=== PATIENT | male | born 1955 | race Caucasian/White ===

== ENCOUNTER → 2016-09-09 | Outpatient (CLI) | payer BC ==
[~2016-09-09] MED LIST: ASPI81CH2 PO; ESCI10TA17 PO; LORA-741 PO; NIAC500T11 PO; SIMV20TA2 PO; ZOLP5TAB PO
== END | disposition home or self-care (01) ==
LOC: C.LAB 06:56
PROVIDERS: ATTEND Urology
DX: R97.20 Elevated prostate specific antigen [PSA] (principal)

== ENCOUNTER → 2016-11-11 | Outpatient (CLI) | payer BC ==
[2016-11-11 12:35] LABS: ALT/SGPT 31 U/L (12-78); BLOOD UREA NITROGEN 14 mg/dl (7-18); BUN/CREATININE RATIO 15.1 (10-20); CALCIUM 9.4 mg/dl (8.5-10.1); CARBON DIOXIDE 28 mmol/L (21-32); CHLORIDE 102 mmol/L (98-107); CHOLESTEROL 162 mg/dl (0-200); CREATININE 0.91 mg/dl (0.60-1.40); GLUCOSE 113 mg/dl (70-99); SODIUM 138 mmol/L (136-145)
[2016-11-11 12:38] LABS: ALB/GLOB RATIO 1.1 (0.9-2); ALKALINE PHOSPHATASE 135 U/L (45-117); AST/SGOT 19 U/L (15-37); CHOLESTEROL/HDL RATIO 2.7; HDL CHOLESTEROL 59 mg/dl; LDL CHOLESTEROL CALCULATED 80 mg/dl; TRIGLYCERIDES 114 mg/dl (0-150); VERY LOW DENSITY LIPOPROT CALC 23 mg/dl
[2016-11-11 12:44] LABS: ESTIMATED AVERAGE GLUCOSE 128 mg/dl; HA1C FLAG Normal (Normal)
== END | disposition home or self-care (01) ==
LOC: C.LAB 11:25
PROVIDERS: ATTEND Family Medicine
DX: E78.00 Pure hypercholesterolemia, unspecified (principal)

== ENCOUNTER 2017-03-01 16:38 | Emergency (ER) | payer BC ==
[~2017-03-01] VITALS: Ht 180.3 cm; Wt 113.0 kg
[2017-03-01 16:51] VITALS: TEMP 36.7; Ht 180.3 cm; Wt 113.0 kg
[2017-03-01] MEDS ORDERED: SIMV20TA2 PO (17:34)
[2017-03-01] MEDS ORDERED: NIAC500T11 PO (17:34)
[2017-03-01] MEDS ORDERED: LORA-741 PO (17:34)
[2017-03-01] MEDS ORDERED: ZOLP5TAB PO (17:34)
[2017-03-01] MEDS ORDERED: ONDANSETRON INJ 2 MG/ML 2 ML VIAL IV STA (17:37)
[2017-03-01] MEDS ORDERED: SODIUM CHLORIDE 0.9% 1000ML 1,000 ML IV STA (17:37)
--- NOTE | 2017-03-01 18:03 | EMERGENCY ROOM VISIT NOTE ---
History Report prepared by Tristin: Jaja Gomez Under the Supervision of: Tess FunesO. First contact with patient: 17:32 Chief Complaint: ABDOMINAL PAIN Stated Complaint: [id number] History of Present Illness The patient is a 61 year old male who presents to the Emergency Room with complaints of constant lower abdominal pain beginning 2 days ago. The patient states that 2 days ago he had a loose stool and began to have stomach cramping that has persisted. He complains of constipation, achiness, chills, nausea, intermittent coughing, headache with coughing, diaphoresis, and pain with moving his eyes from side to side. The patient denies any diarrhea, rash, back pain, and bloody stool. He notes that he spends a lot of time outside and in the [place] and is concerned that he may have soha bitten by a tick. He reports no history of abdominal surgery or diverticulitis. He notes that he gets regular colonoscopies that are normal. Source of History: patient Onset: 2 days ago Position: abdomen Timing: constant Associated Symptoms: + chills, + headache, + diaphoresis, + cough, + nausea , No back pain, No diarrhea, No rash Note: He complains of constipation, achiness, and pain with moving his eyes from side to side. The patient denies bloody stool. Review of Systems See HPI for pertinent positives & negatives. A total of 10 systems reviewed and were otherwise negative. Past Medical & Surgical Medical Problems: (1) Asthma (2) Bronchitis Surgical Problems: (1) H/O vasectomy Family History o pertinent family history stated. Social History Smoking Status: Former Smoker Smokeless Tobacco Use: No Alcohol Use: occasionally Drug Use: none Marital Status: Housing Status: lives with significant other Occupation Status: employed Current/Historical Medications Scheduled Niacin (Niacin), 500 MG PO DAILY Simvastatin (Zocor), 20 MG PO QPM Scheduled PRN Lorazepam (Ativan), 0.5 MG PO Q6H PRN for Anxiety Zolpidem Tartrate (Ambien), 5 MG PO HS PRN for Sleep Allergies Coded Allergies: No Known Allergies (Unverified , 03/01/17) Physical Exam Vital Signs Date Time Temp Pulse Resp B/P (MAP) Pulse Ox O2 Delivery O2 Flow Rate FiO2 03/01/17 19:58 65 20 139/75 97 03/01/17 19:12 59 03/01/17 18:36 55 21 127/76 94 Room Air 03/01/17 16:51 36.7 72 18 111/72 96 Room Air Physical Exam GENERAL: Patient is awake, alert, and in no acute distress. Patient is resting comfortably and showing no signs of anxiety EYES: The conjunctivae are clear. The pupils are round and reactive. EARS, NOSE, MOUTH AND THROAT: The nose is without any evidence of any deformity. Mucous membranes are moist tongue is midline NECK: The neck is nontender and supple. RESPIRATORY: Normal respiratory effort is noted there is no evidence of wheezing rhonchi or rales CARDIOVASCULAR: Regular rate and rhythm noted there no murmurs rubs or gallops normal S1 normal S2 GASTROINTESTINAL: Bowel sounds are present in all quadrants. Abdomen moderately distended with lower abdominal tenderness to palpation, mild guarding was noted in suprapubic region BACK: No midline tenderness or or step-off noted range of motion in flexion extension as well as rotation no signs of muscle spasm noted MUSCULOSKELETAL/EXTREMITIES: There is no evidence of gross deformity full range of motion is noted in the hips and shoulders SKIN: There is no obvious evidence of any rash. There are no petechiae, pallor or cyanosis noted. NEUROLOGIC: Patient is awake alert and oriented x3 Medical Decision & Procedures ER Provider Diagnostic Interpretation: Radiology results as stated below per my review and radiologist interpretation: CHEST ONE VIEW PORTABLE FINDINGS: The cardiac and mediastinal contours are normal. There is no evidence of focal pulmonary consolidation. There is no evidence of failure. No pleural effusions are visualized.[ There is no free intraperitoneal air. IMPRESSION: No active disease in the chest. Electronically signed by: Darrell Asencio M.D. 03/01/2017 6:07 PM Dictated Date/Time: 03/01/2017 6:[address] SCAN OF THE ABDOMEN AND PELVIS WITHOUT IV CONTRAST FINDINGS: Lung bases: The heart is enlarged and without pericardial effusion. The coronary arteries are densely calcified. Emphysematous change is noted. There is no airspace consolidation or pleural effusion. Dependent atelectasis is observed. Liver: The unenhanced liver is normal in size and contour. The liver demonstrates diffusely diminished attenuation consistent with hepatic steatosis a 2 cm cyst is noted in the right lobe. There is no intrahepatic biliary ductal dilatation. Gallbladder: Unremarkable. Spleen: The spleen is enlarged measuring 15.1 cm in length. Pancreas: The unenhanced pancreas is moderately atrophic and grossly unremarkable. Adrenal glands: Unremarkable. Kidneys: The unenhanced kidneys are normal in size and without hydronephrosis. There are no renal calculi identified. A 2.5 cm exophytic cyst arises from the left upper pole. Abdominal vasculature: The abdominal aorta is normal in course and caliber noting moderate to advanced atherosclerotic calcification. Bowel: The small bowel and colon are normal in course and caliber. There are scattered colonic diverticula without CT evidence of acute diverticulitis. The appendix is well-visualized and normal. Peritoneum: There is no intraperitoneal free air or abdominal ascites. Trace indeterminant fluid is noted in the pelvis. Lymphadenopathy: None. Pelvic viscera: The bladder, prostate, and seminal vesicles are normal as visualized. Skeletal structures: The skeletal structures are osteopenic. Mild lumbosacral spondylosis is observed. No lytic or blastic lesions are seen. IMPRESSION: 1. Suboptimal examination without oral and IV contrast. 2. There is trace free fluid in the pelvis. This is of indeterminant significance and may be a reactive basis. 3. No additional infectious or inflammatory findings are seen in the abdomen or pelvis. 4. Hepatic steatosis and splenomegaly. 5. Cardiomegaly and emphysema. 6. Additional findings as above. Electronically signed by: Brian Cancino M.D. 03/01/2017 6:39 PM Dictated Date/Time: 03/01/2017 6:33 PM Laboratory Results 03/01/17 18:00 Red Blood Count 5.37, Mean Corpuscular Volume 84.5, Mean Corpuscular Hemoglobin 29.2, Mean Corpuscular Hemoglobin Concent 34.6, Mean Platelet Volume 9.7, Neutrophils (%) (Auto) 80.7, Lymphocytes (%) (Auto) 12.4, Monocytes (%) (Auto) 5.9, Eosinophils (%) (Auto) 0.0, Basophils (%) (Auto) 0.5, Neutrophils # (Auto) 3.31, Lymphocytes # (Auto) 0.51, Monocytes # (Auto) 0.24, Eosinophils # (Auto) 0.00, Basophils # (Auto) 0.02 03/01/17 18:00 Test 03/01/17 18:00 White Blood Count 4.10 K/uL (4.8-10.8) Red Blood Count 5.37 M/uL (4.7-6.1) Hemoglobin 15.7 g/dL (14.0-18.0) Hematocrit 45.4 % (42-52) Mean Corpuscular Volume 84.5 fL (80-100) Mean Corpuscular Hemoglobin 29.2 pg (25-34) Mean Corpuscular Hemoglobin Concent 34.6 g/dl (32-36) Platelet Count 130 K/uL (130-400) Mean Platelet Volume 9.7 fL (7.4-10.4) Neutrophils (%) (Auto) 80.7 % Lymphocytes (%) (Auto) 12.4 % Monocytes (%) (Auto) 5.9 % Eosinophils (%) (Auto) 0.0 % Basophils (%) (Auto) 0.5 % Neutrophils # (Auto) 3.31 K/uL (1.4-6.5) Lymphocytes # (Auto) 0.51 K/uL (1.2-3.4) Monocytes # (Auto) 0.24 K/uL (0.11-0.59) Eosinophils # (Auto) 0.00 K/uL (0-0.5) Basophils # (Auto) 0.02 K/uL (0-0.2) RDW Standard Deviation 41.1 fL (36.4-46.3) RDW Coefficient of Variation 13.3 % (11.5-14.5) Immature Granulocyte % (Auto) 0.5 % Immature Granulocyte # (Auto) 0.02 K/uL (0.00-0.02) Prothrombin Time 12.0 SECONDS (9.0-12.0) Prothromb Time International Ratio 1.1 (0.9-1.1) Activated Partial Thromboplast Time 28.8 SECONDS (21.0-31.0) Partial Thromboplastin Ratio 1.1 Anion Gap 7.0 mmol/L (3-11) Est Creatinine Clear Calc Drug Dose 111.4 ml/min Estimated GFR () 107.0 Estimated GFR (Non- 92.3 BUN/Creatinine Ratio 13.0 (10-20) Calcium Level 8.8 mg/dl (8.5-10.1) Total Bilirubin 1.7 mg/dl (0.2-1) Direct Bilirubin 0.3 mg/dl (0-0.2) Aspartate Amino Transf (AST/SGOT) 31 U/L (15-37) Alanine Aminotransferase (ALT/SGPT) 29 U/L (12-78) Alkaline Phosphatase 112 U/L (45-117) Troponin I < 0.015 ng/ml (0-0.045) Total Protein 6.7 gm/dl (6.4-8.2) Albumin 3.4 gm/dl (3.4-5.0) Lipase 90 U/L (73-393) Lyme Disease IgG Antibody NEG (NEG) Lyme Disease IgM Antibody NEG (NEG) Laboratory results per my review. Medications Administered Medications (Trade) Dose Ordered Sig/Carlos Route Start Time Stop Time Status Last Admin Dose Admin Sodium Chloride 1,000 ml @ 999 mls/hr Q1H1M STAT IV 03/01/17 17:37 03/01/17 18:37 DC 03/01/17 18:15 999 MLS/HR Ondansetron HCl (Zofran Inj) 4 mg NOW STAT IV 03/01/17 17:37 03/01/17 17:39 DC 03/01/17 18:15 4 MG ECG Indication: abdominal pain Rate (beats per minute): 57 Rhythm: normal sinus Findings: no ectopy, other (no ST segment abnormalities) Comparison ECG Date: no prior available ED Course 1731: The patient was evaluated in room C8. A complete history and physical examination were performed. 1736: Zofran Inj 4mg IV, NSS 1,000 ml @ 999 mls/hr IV. 1934: I reevaluated and updated the patient. He is ready to go home. 1939: Upon reevaluation, the patient is doing well. I discussed the results and treatment plan with the patient. He verbalized agreement of the treatment plan. The patient was discharged home. Medical Decision Differential diagnosis: Etiologies such as appendicitis, diverticulitis, PUD, biliary pathology, UTI, pancreatitis, obstruction, mesenteric ischemia, aortic pathology, infections, inflammatory bowel disease, renal colic, as well as others were entertained. Medication Reconciliation: I attest that I have personally reviewed the patient' s current medications list. Blood pressure screening: Patient was found to have normal blood pressure on screening and does not require follow-up. The patient is a 61-year-old male who presented to the emergency department for an evaluation of lower abdominal discomfort. The patient states that his symptoms began a few days ago with constitutional symptoms including chills. He complains of constipation as well. Given the patient's location of his pain initially I thought his condition was consistent with diverticulitis. The patient was treated with IV fluids and IV antiemetics in the emergency department. On subsequent reevaluation he was feeling much better. I discussed the patient's laboratory and radiographic studies with him. He was encouraged to call his primary care physician in the morning to schedule follow-up. He was also encouraged to continue all medications as prescribed and return to the emergency department immediately if symptoms change worsen or the need arises. Impression Primary Impression: Abdominal pain Scribe Attestation The scribe's documentation has been prepared under my direction and personally reviewed by me in its entirety. I confirm that the note above accurately reflects all work, treatment, procedures, and medical decision making performed by me. Departure Information Dispostion Home / Self-Care Referrals Sonia Ontiveros D.O. (PCP) Forms HOME CARE DOCUMENTATION FORM, IMPORTANT VISIT INFORMATION Patient Instructions ED Abdominal Pain Unkn Cause Male, ED Fever Control, [facility] Additional Instructions Continue using Motrin and Tylenol as directed for fever and body aches. Call your family in the morning to schedule a follow-up appointment. Rest and avoid any strenuous activity. Drink plenty clear liquids. Return to the emergency Department immediately if symptoms change worsen or the need arises. Problem Qualifiers Primary Impression: Abdominal pain Abdominal location: lower abdomen, unspecified Qualified Codes: R10.30 - Lower abdominal pain, unspecified
--- NOTE | 2017-03-01 18:09 | DIAGNOSTIC IMAGING REPORT ---
CHEST ONE VIEW PORTABLE CLINICAL HISTORY: Abdominal pain COMPARISON STUDY: No previous studies for comparison. FINDINGS: The cardiac and mediastinal contours are normal. There is no evidence of focal pulmonary consolidation. There is no evidence of failure. No pleural effusions are visualized.[ There is no free intraperitoneal air. IMPRESSION: No active disease in the chest. Electronically signed by: Darrell Asencio M.D. 03/01/2017 6:07 PM Dictated Date/Time: 03/01/2017 6:07 PM
[2017-03-01 18:15] LABS: BASO % 0.5 %; BASO ABS # 0.02 K/uL (0-0.2); COMPLETE YES; HEMATOCRIT 45.4 % (42-52); IG% 0.5 %; LYMPH % 12.4 %; LYMPH ABS # 0.51 K/uL (1.2-3.4); MEAN CELL VOLUME 84.5 fL (80-100); MEAN CORPUSCULAR HEMOGLOBIN 29.2 pg (25-34); MEAN CORPUSCULAR HGB CONC 34.6 g/dl (32-36); MEAN PLATELET VOLUME 9.7 fL (7.4-10.4); MONO % 5.9 %; NEUT % 80.7 %; PLATELET COUNT 130 K/uL (130-400); RED BLOOD COUNT 5.37 M/uL (4.7-6.1)
[2017-03-01 18:24] LABS: INR 1.1 (0.9-1.1); PARTIAL THROMBOPLASTIN RATIO 1.1
[2017-03-01 18:31] LABS: ALT/SGPT 29 U/L (12-78); AST/SGOT 31 U/L (15-37); BLOOD UREA NITROGEN 12 mg/dl (7-18); CALCIUM 8.8 mg/dl (8.5-10.1); CARBON DIOXIDE 28 mmol/L (21-32); CHLORIDE 97 mmol/L (98-107); CREATININE 0.89 mg/dl (0.60-1.40); GLUCOSE 91 mg/dl (70-99); POTASSIUM 3.5 mmol/L (3.5-5.1); SODIUM 132 mmol/L (136-145)
[2017-03-01 18:36] LABS: ALKALINE PHOSPHATASE 112 U/L (45-117)
--- NOTE | 2017-03-01 18:41 | DIAGNOSTIC IMAGING REPORT ---
CT SCAN OF THE ABDOMEN AND PELVIS WITHOUT IV CONTRAST CLINICAL HISTORY: Lower abdominal pain. COMPARISON STUDY: No priors. TECHNIQUE: CT scan of the abdomen and pelvis is performed from the lung bases to the proximal femora. Images are reviewed in the axial, sagittal, and coronal planes. IV contrast was not administered for this examination as per the referring clinician. Note that the examination was performed in suboptimal fashion without oral and IV contrast. Automated dose control exposure was utilized. CT DOSE: 1035.58 mGy.cm FINDINGS: Lung bases: The heart is enlarged and without pericardial effusion. The coronary arteries are densely calcified. Emphysematous change is noted. There is no airspace consolidation or pleural effusion. Dependent atelectasis is observed. Liver: The unenhanced liver is normal in size and contour. The liver demonstrates diffusely diminished attenuation consistent with hepatic steatosis a 2 cm cyst is noted in the right lobe. There is no intrahepatic biliary ductal dilatation. Gallbladder: Unremarkable. Spleen: The spleen is enlarged measuring 15.1 cm in length. Pancreas: The unenhanced pancreas is moderately atrophic and grossly unremarkable. Adrenal glands: Unremarkable. Kidneys: The unenhanced kidneys are normal in size and without hydronephrosis. There are no renal calculi identified. A 2.5 cm exophytic cyst arises from the left upper pole. Abdominal vasculature: The abdominal aorta is normal in course and caliber noting moderate to advanced atherosclerotic calcification. Bowel: The small bowel and colon are normal in course and caliber. There are scattered colonic diverticula without CT evidence of acute diverticulitis. The appendix is well-visualized and normal. Peritoneum: There is no intraperitoneal free air or abdominal ascites. Trace indeterminant fluid is noted in the pelvis. Lymphadenopathy: None. Pelvic viscera: The bladder, prostate, and seminal vesicles are normal as visualized. Skeletal structures: The skeletal structures are osteopenic. Mild lumbosacral spondylosis is observed. No lytic or blastic lesions are seen. IMPRESSION: 1. Suboptimal examination without oral and IV contrast. 2. There is trace free fluid in the pelvis. This is of indeterminant significance and may be a reactive basis. 3. No additional infectious or inflammatory findings are seen in the abdomen or pelvis. 4. Hepatic steatosis and splenomegaly. 5. Cardiomegaly and emphysema. 6. Additional findings as above. Electronically signed by: Brian Cancino M.D. 03/01/2017 6:39 PM Dictated Date/Time: 03/01/2017 6:33 PM
[2017-03-01 19:10] LABS: LYME DISEASE AB IGM NEG (NEG)
[2017-03-01 19:13] LABS: LYME DISEASE AB IGG NEG (NEG)
[2017-03-01 19:58] VITALS: BP 139/75; PULSE 65; O2SAT 97
[2017-03-02] MEDS ORDERED: ASPI81CH2 PO (21:17)
[2017-03-02] MEDS ORDERED: ESCI10TA17 PO (21:17)
== END 2017-03-01 19:59 | disposition home or self-care (01) ==
LOC: C.EDB 16:39 → C.EDC 19:59
DX: R10.30 Lower abdominal pain, unspecified (principal); J45.909 Unspecified asthma, uncomplicated; Z98.52 Vasectomy status; Z87.891 Personal history of nicotine dependence; Z79.899 Other long term (current) drug therapy

== ENCOUNTER 2017-03-02 20:56 | Emergency (ER) | payer BC ==
[~2017-03-02] VITALS: Ht 180.3 cm; Wt 111.0 kg
[~2017-03-02 20:56] MED LIST changes: -ASPI81CH2 PO; -ESCI10TA17 PO
[2017-03-02 21:02] VITALS: Ht 180.3 cm; Wt 111.0 kg
[2017-03-02] MEDS ORDERED: ASPI81CH2 PO (21:17)
[2017-03-02] MEDS ORDERED: ESCI10TA17 PO (21:17)
--- NOTE | 2017-03-02 22:55 | DIAGNOSTIC IMAGING REPORT ---
CHEST ONE VIEW PORTABLE CLINICAL HISTORY: Altered mental status. COMPARISON STUDY: Chest radiograph March 01, 2017. FINDINGS: The lung volumes are normal. There is no consolidation to suggest pneumonia. Pulmonary vascularity is normal. Cardiac size is at the upper limits of normal. No pneumothorax or pleural effusion is present. IMPRESSION: No acute cardiopulmonary findings. Electronically signed by: Wisam Arzola M.D. 03/02/2017 10:53 PM Dictated Date/Time: 03/02/2017 10:52 PM
[2017-03-02 23:01] LABS: BASO % 0.6 %; BASO ABS # 0.02 K/uL (0-0.2); COMPLETE YES; HEMATOCRIT 39.9 % (42-52); LYMPH % 24.1 %; LYMPH ABS # 0.75 K/uL (1.2-3.4); MEAN CELL VOLUME 81.3 fL (80-100); MEAN CORPUSCULAR HEMOGLOBIN 29.1 pg (25-34); MEAN CORPUSCULAR HGB CONC 35.8 g/dl (32-36); MEAN PLATELET VOLUME 9.8 fL (7.4-10.4); NEUT % 58.3 %; PLATELET COUNT 130 K/uL (130-400); RED BLOOD COUNT 4.91 M/uL (4.7-6.1); WHITE BLOOD COUNT 3.11 K/uL (4.8-10.8)
--- NOTE | 2017-03-02 23:06 | EMERGENCY ROOM VISIT NOTE ---
History Report prepared by Tristin: Larry Medley Under the Supervision of: Dr. John Medrano M.D. First contact with patient: 22:27 Chief Complaint: NEURO SYMPTOMS Stated Complaint: VERY CONFUSED, HEADACHE, HEAVINESS ON SIDE, EYE Nursing Triage Summary: Patient left work early due to "shivers", weakness & headache. Went home and took an Ambien & nap from approx [id number]. reports at 1830 she noticed he was unsteady, difficulty remembering things & answering questions. She also noted he was incontinent of liquid stool which is abnormal for patient. Difficulty using tv remote as well. Was here yesterday in ED for GI sx & dehydration. Reports that he has been drinking fluids & had a small snack. Reports lack of appetite. Took laxative 03/01/17 and has had results since then. C/O bilateral "eye sockets" hurting. Denies any other pain or discomfort. History of Present Illness The patient is a 61 year old male who presents to the Emergency Room with a constant altered mental status beginning prior to arrival. The patient's states that she came home from work, and the patient had chills, a bright red face, and was disoriented. She reports that he had taken Ambien and went to sleep. The notes that when the patient would walk, he walks with a slant and is disoriented. She states that she convinced him to try and watch TV, and he could not use the remote. The reports the patient went to the bathroom, failed to pull his pants down, and had an accident. The patient states that he was tired and needed to sleep. He reports that he took the Ambien because he wanted to take a nap, and then sleep at night without taking another dose. The patient notes he has taken Ambien before because he has tinnitus and can not fall back asleep when he wakes in the night. He states that he has a headache. The patient denies hitting his head, neck pain, neck stiffness, a sorethroat, chest pain, and dysuria. He notes that he was in the ED yesterday because he was constipated and dehydrated, and he was told he had a virus. Source of History: patient Onset: prior to arrival Position: other (global) Quality: other (altered mental status) Timing: constant Associated Symptoms: + chills, + headache, No sorethroat, No neck pain, No chest pain Note: Associated symptoms: a bright red face and disoriented Denies hitting his head, neck stiffness and dysuria. Review of Systems See HPI for pertinent positives & negatives. A total of 10 systems reviewed and were otherwise negative. Past Medical & Surgical Medical Problems: (1) Asthma (2) Bronchitis Surgical Problems: (1) H/O vasectomy Family History Patient reports no known family medical history. Social History Smoking Status: Never Smoker Alcohol Use: occasionally Drug Use: none Marital Status: Housing Status: lives with significant other Occupation Status: employed Current/Historical Medications Scheduled Aspirin (Aspirin), 81 MG PO DIRECTED Escitalopram (Lexapro), Unknown Dose PO QPM Niacin (Niacin), 500 MG PO DAILY Simvastatin (Zocor), 20 MG PO HS Scheduled PRN Zolpidem Tartrate (Ambien), 5 MG PO HS PRN for Sleep Allergies Coded Allergies: No Known Allergies (Unverified , 03/02/17) Physical Exam Vital Signs Date Time Temp Pulse Resp B/P (MAP) Pulse Ox O2 Delivery O2 Flow Rate FiO2 03/03/17 02:01 71 20 115/78 94 Room Air 03/03/17 01:48 74 24 123/77 94 Room Air 03/03/17 00:48 72 25 94 Room Air 03/02/17 23:47 37.0 76 18 127/87 94 Room Air 03/02/17 22:56 74 25 94 Room Air 03/02/17 22:26 80 28 95 Room Air 03/02/17 21:56 76 17 114/77 93 Room Air 03/02/17 21:47 77 03/02/17 21:02 37.6 92 18 109/76 93 Room Air Physical Exam GENERAL: Patient is well appearing and in no acute distress, however mildly confused and forgetful. HEENT: No acute trauma, normocephalic atraumatic, mucous membranes moist, no nasal congestion, no scleral icterus. NECK: No stridor, no adenopathy, no meningismus, trachea is midline. LUNGS: No dyspnea. Clear to auscultation and equal bilaterally. No wheeze, no rhonchi. HEART: Regular rate and rhythm. No murmurs, rubs, gallops appreciated. ABDOMEN: Soft, nontender, bowel sounds positive, no masses appreciated, no peritonitis. BACK: No midline tenderness, no CVA tenderness EXTREMITIES: Normal motion all extremities, no cyanosis, no edema. NEUROLOGIC: Alert and oriented, no acute motor or sensory deficits, no focal weakness, cranial nerves grossly intact. SKIN: No rash, no jaundice, no diaphoresis. Medical Decision & Procedures ER Provider Diagnostic Interpretation: Radiology results and stated below per my review and radiologist interpretation: CHEST ONE VIEW PORTABLE CLINICAL HISTORY: Altered mental status. COMPARISON STUDY: Chest radiograph March 01, 2017. FINDINGS: The lung volumes are normal. There is no consolidation to suggest pneumonia. Pulmonary vascularity is normal. Cardiac size is at the upper limits of normal. No pneumothorax or pleural effusion is present. IMPRESSION: No acute cardiopulmonary findings. Electronically signed by: Wisam Arzola M.D. 03/02/2017 10:53 PM Dictated Date/Time: 03/02/2017 10:[address] HEAD: No ICH, mass effect, or edema. No evidence of acute cortical stroke. Visualized sinuses and mastoid air cells are clear. Radiologist: Kodi Curiel MD Study ready at 9502 and initial results transmitted at 6133. Laboratory Results 03/02/17 22:05 Red Blood Count 4.91, Mean Corpuscular Volume 81.3, Mean Corpuscular Hemoglobin 29.1, Mean Corpuscular Hemoglobin Concent 35.8, Mean Platelet Volume 9.8, Neutrophils (%) (Auto) 58.3, Lymphocytes (%) (Auto) 24.1, Monocytes (%) (Auto) 17.0, Eosinophils (%) (Auto) 0.0, Basophils (%) (Auto) 0.6, Neutrophils # (Auto ) 1.81, Lymphocytes # (Auto) 0.75, Monocytes # (Auto) 0.53, Eosinophils # (Auto ) 0.00, Basophils # (Auto) 0.02 03/02/17 22:05 Test 03/02/17 22:05 03/02/17 23:42 03/02/17 23:45 White Blood Count 3.11 K/uL (4.8-10.8) Red Blood Count 4.91 M/uL (4.7-6.1) Hemoglobin 14.3 g/dL (14.0-18.0) Hematocrit 39.9 % (42-52) Mean Corpuscular Volume 81.3 fL (80-100) Mean Corpuscular Hemoglobin 29.1 pg (25-34) Mean Corpuscular Hemoglobin Concent 35.8 g/dl (32-36) Platelet Count 130 K/uL (130-400) Mean Platelet Volume 9.8 fL (7.4-10.4) Neutrophils (%) (Auto) 58.3 % Lymphocytes (%) (Auto) 24.1 % Monocytes (%) (Auto) 17.0 % Eosinophils (%) (Auto) 0.0 % Basophils (%) (Auto) 0.6 % Neutrophils # (Auto) 1.81 K/uL (1.4-6.5) Lymphocytes # (Auto) 0.75 K/uL (1.2-3.4) Monocytes # (Auto) 0.53 K/uL (0.11-0.59) Eosinophils # (Auto) 0.00 K/uL (0-0.5) Basophils # (Auto) 0.02 K/uL (0-0.2) RDW Standard Deviation 38.7 fL (36.4-46.3) RDW Coefficient of Variation 12.8 % (11.5-14.5) Immature Granulocyte % (Auto) 0.0 % Immature Granulocyte # (Auto) 0.00 K/uL (0.00-0.02) Erythrocyte Sedimentation Rate 4 mm/hr (0-14) Prothrombin Time 11.3 SECONDS (9.0-12.0) Prothromb Time International Ratio 1.1 (0.9-1.1) Activated Partial Thromboplast Time 30.5 SECONDS (21.0-31.0) Partial Thromboplastin Ratio 1.2 Anion Gap 9.0 mmol/L (3-11) Est Creatinine Clear Calc Drug Dose 121.3 ml/min Estimated GFR () 111.2 Estimated GFR (Non- 95.9 BUN/Creatinine Ratio 10.4 (10-20) Calcium Level 8.3 mg/dl (8.5-10.1) Total Bilirubin 1.6 mg/dl (0.2-1) Direct Bilirubin 0.4 mg/dl (0-0.2) Aspartate Amino Transf (AST/SGOT) 52 U/L (15-37) Alanine Aminotransferase (ALT/SGPT) 41 U/L (12-78) Alkaline Phosphatase 103 U/L (45-117) Troponin I < 0.015 ng/ml (0-0.045) C-Reactive Protein 8.72 mg/dl (0-0.29) Total Protein 6.1 gm/dl (6.4-8.2) Albumin 3.2 gm/dl (3.4-5.0) Bedside Lactic Acid Venous 0.83 mmol/L (0.90-1.70) Urine Color DK YELLOW Urine Appearance CLEAR (CLEAR) Urine pH 6.5 (4.5-7.5) Urine Specific [place] 1.016 (1.000-1.030) Urine Protein NEG (NEG) Urine Glucose (UA) NEG (NEG) Urine Ketones NEG (NEG) Urine Occult Blood TRACE (NEG) Urine Nitrite NEG (NEG) Urine Bilirubin NEG (NEG) Urine Urobilinogen POS (NEG) Urine Leukocyte Esterase NEG (NEG) Urine WBC (Auto) 1-5 /hpf (0-5) Urine RBC (Auto) 0-4 /hpf (0-4) Urine Hyaline Casts (Auto) 0 /lpf (0-5) Urine Epithelial Cells (Auto) 5-10 /lpf (0-5) Urine Bacteria (Auto) NEG (NEG) Laboratory results as reviewed by me. ECG Indication: altered mental status Rate (beats per minute): 79 Rhythm: normal sinus Findings: no acute ischemic change, no ectopy ED Course 2230: The patient was evaluated in room C07. A complete history and physical exam was performed. 0013: I reevaluated the patient. He is more alert and feeling better. 0016: I discussed the patients case with Dr. Wall, [facility] Hospitalist. The patient will be evaluated for further treatment. Medical Decision Differential: Appendicitis, Diverticulitis, PUD/Gastritis, Biliary Pathology, UTI, Pyelonephritis, Renal Colic, Bowel Obstruction, Aortic Pathology, Acute Coronary Syndrome, amongst other pathologies entertained. Medication Reconciliation: I attest that I have personally reviewed the patient 's current medication list. Pleasant 61 yr old male arrives with family clearly confused and forgetful. No meningeal findings and no fevers. Was seen yesterday for abdominal pain and diagnosed with viral syndrome. Today abdomen soft, non-tender and benign today. Labs with mild bili elevation which is chronic. CRP elevated which is non-specific. WBC normal and other labs unremarkable. CT head unremarkable. Initial plan to consider LP though on re-evaluation he if vastly improved, feeling well and without symptoms. Full ROM neck, A&O x 4 and in no way meningitic. I feel LP not at this time indicated. Given vast change I am concerned he may have has stroke or TIA. I reviewed this with family and will defer further work-up to hospitalist. Stable and feeling well at time of consult. I did note to family that with liver abnormalities it may be that he is unable to clear ambien as quickly, plus with exhaustion all of this lead to acute confusion/encephalopathy, though without further work-up would be difficult to say for sure. Consults Time Called: 13 Consulting Physician: Dr. Wall, [facility] Hospitalist Returned Call: 0016 I discussed the patients case with Dr. Wall, [facility] Hospitalist. The patient will be evaluated for further treatment. Impression Primary Impression: Acute encephalopathy Scribe Attestation The scribe's documentation has been prepared under my direction and personally reviewed by me in its entirety. I confirm that the note above accurately reflects all work, treatment, procedures, and medical decision making performed by me. Departure Information Dispostion Being Evaluated By Hospitalist Referrals Sonia Ontiveros D.O. (PCP) Patient Instructions My [facility]
[2017-03-02 23:09] LABS: INR 1.1 (0.9-1.1); PARTIAL THROMBOPLASTIN RATIO 1.2; PROTHROMBIN TIME (PATIENT) 11.3 SECONDS (9.0-12.0)
[2017-03-02 23:11] LABS: ALT/SGPT 41 U/L (12-78); AST/SGOT 52 U/L (15-37); BLOOD UREA NITROGEN 8 mg/dl (7-18); BUN/CREATININE RATIO 10.4 (10-20); C-REACTIVE PROTEIN 8.72 mg/dl (0-0.29); CALCIUM 8.3 mg/dl (8.5-10.1); CARBON DIOXIDE 26 mmol/L (21-32); CHLORIDE 96 mmol/L (98-107); CREATININE 0.81 mg/dl (0.60-1.40); GLUCOSE 101 mg/dl (70-99); POTASSIUM 3.3 mmol/L (3.5-5.1); SODIUM 131 mmol/L (136-145)
[2017-03-02 23:16] LABS: ALKALINE PHOSPHATASE 103 U/L (45-117)
[2017-03-02 23:47] VITALS: TEMP 37
[2017-03-03 00:01] LABS: URINE APPEARANCE CLEAR (CLEAR); URINE BILIRUBIN NEG (NEG); URINE COLOR DK YELLOW; URINE NITRITE NEG (NEG); URINE PH 6.5 (4.5-7.5); URINE SPECIFIC GRAVITY 1.016 (1.000-1.030); UROBILINOGEN POS (NEG); ZZUR CULT IF INDIC CLEAN CATCH NO
[2017-03-03 00:09] LABS: MANUAL MICROSCOPIC REQUIRED? NO; REVIEW REQ? NO
[2017-03-03] MEDS ORDERED: GADAVIST IV PRN (04:30)
--- NOTE | 2017-03-03 05:28 | EMERGENCY ROOM VISIT NOTE ---
ED Visit Note First contact with patient: 05:16 This patient was evaluated by Dr. Lechuga and the resident from the [facility] service. They ordered an MRI which was unremarkable. They felt the patient was safe for discharge home. There was a bit of confusion as to exactly how much Ambien the patient took yesterday morning. Mental status has returned to normal. He will follow-up with Dr. Kemp who is his PCP in [place]. I instructed the to return to the emergency department patient had any additional confusion or altered mental status.
[2017-03-03 05:33] VITALS: BP 136/87; PULSE 84; O2SAT 93
--- NOTE | 2017-03-03 05:35 | Medical Consult ---
Consultation Date of Consultation: Mar 03, 2017. Attending Physician: Reason for Consultation: Altered mental status History of Present Illness 61-year-old male resident to the ER with complaints of altered mental status. The patient is accompanied by his stated that after she came home from work and noticed that the patient was disoriented. Per patient, the patient has been suffering from constipation followed by loose stools secondary to laxative use and had returned home from work as he was feeling unwell. He took an unknown amount of Ambien to help him sleep in the afternoon. His had tried to wake him after returning from work but he had felt very groggy and appeared to be very confused. The patient stated that he usually took Ambien to help with sleep and had not felt groggy before. The patient's was confused as he appeared to be disoriented and could not figure how to use the TV remote and also had incontinent bowel movement. He however is alert and oriented currently and denies any chest pain, shortness of breath, headache, motor weakness, numbness or tingling, blurry vision or slurring of speech Past Medical/Surgical History Medical Problems: (1) Abdominal pain Status: Acute (2) Acute encephalopathy Status: Acute Family History Patient reports no known family medical history. Social History Smoking Status: Never Smoker Drug Use: none Marital Status: Housing Status: lives with significant other Occupation Status: employed Allergies Coded Allergies: No Known Allergies (Unverified , 03/02/17) Current Inpatient Medications Current Inpatient Medications Medications (Trade) Dose Ordered Sig/Carlos Route Start Time Stop Time Status Last Admin Dose Admin Gadobutrol (Gadavist) 11 mmol UD PRN IV 03/03/17 04:30 03/07/17 04:29 Review of Systems Constitutional: No fever, No chills Eyes: No worsening of vision ENT: No hearing loss Respiratory: No cough, No sputum Cardiovascular: No chest pain Abdomen: + diarrhea, No pain, No nausea, No vomiting Musculoskeletal: No joint pain Genitourinary - Male: No hematuria, No dysuria Neurologic: No memory loss Psychiatric: No depression symptoms Endocrine: No fatigue Hematologic / Lymphatic: No abnormal bleeding/bruising Allergic / Immunologic: No environmental allergies Physical Exam Date Time Temp Pulse Resp B/P (MAP) Pulse Ox O2 Delivery O2 Flow Rate FiO2 03/03/17 05:33 84 18 136/87 93 03/03/17 04:10 79 18 120/76 96 Room Air 03/03/17 02:01 71 20 115/78 94 Room Air 03/03/17 01:48 74 24 123/77 94 Room Air 03/03/17 00:48 72 25 94 Room Air 03/02/17 23:47 37.0 76 18 127/87 94 Room Air 03/02/17 22:56 74 25 94 Room Air 03/02/17 22:26 80 28 95 Room Air 03/02/17 21:56 76 17 114/77 93 Room Air 03/02/17 21:47 77 03/02/17 21:02 37.6 92 18 109/76 93 Room Air General Appearance: WD/WN, no apparent distress Head: normocephalic, atraumatic Eyes: normal inspection ENT: normal ENT inspection, hearing grossly normal Neck: supple Respiratory/Chest: chest non-tender, lungs clear, normal breath sounds Cardiovascular: regular rate, rhythm Abdomen/GI: soft, no organomegaly Extremities/Musculoskelatal: no calf tenderness, no pedal edema Neurologic/Psych: alert, normal mood/affect, oriented x 3 Skin: normal color Laboratory Results Last 24 Hours Test 03/02/17 22:05 03/02/17 23:42 03/02/17 23:45 White Blood Count 3.11 K/uL Red Blood Count 4.91 M/uL Hemoglobin 14.3 g/dL Hematocrit 39.9 % Mean Corpuscular Volume 81.3 fL Mean Corpuscular Hemoglobin 29.1 pg Mean Corpuscular Hemoglobin Concent 35.8 g/dl Platelet Count 130 K/uL Mean Platelet Volume 9.8 fL Neutrophils (%) (Auto) 58.3 % Lymphocytes (%) (Auto) 24.1 % Monocytes (%) (Auto) 17.0 % Eosinophils (%) (Auto) 0.0 % Basophils (%) (Auto) 0.6 % Neutrophils # (Auto) 1.81 K/uL Lymphocytes # (Auto) 0.75 K/uL Monocytes # (Auto) 0.53 K/uL Eosinophils # (Auto) 0.00 K/uL Basophils # (Auto) 0.02 K/uL RDW Standard Deviation 38.7 fL RDW Coefficient of Variation 12.8 % Immature Granulocyte % (Auto) 0.0 % Immature Granulocyte # (Auto) 0.00 K/uL Erythrocyte Sedimentation Rate 4 mm/hr Prothrombin Time 11.3 SECONDS Prothromb Time International Ratio 1.1 Activated Partial Thromboplast Time 30.5 SECONDS Partial Thromboplastin Ratio 1.2 Sodium Level 131 mmol/L Potassium Level 3.3 mmol/L Chloride Level 96 mmol/L Carbon Dioxide Level 26 mmol/L Anion Gap 9.0 mmol/L Blood Urea Nitrogen 8 mg/dl Creatinine 0.81 mg/dl Est Creatinine Clear Calc Drug Dose 121.3 ml/min Estimated GFR () 111.2 Estimated GFR (Non- 95.9 BUN/Creatinine Ratio 10.4 Random Glucose 101 mg/dl Calcium Level 8.3 mg/dl Total Bilirubin 1.6 mg/dl Direct Bilirubin 0.4 mg/dl Aspartate Amino Transf (AST/SGOT) 52 U/L Alanine Aminotransferase (ALT/SGPT) 41 U/L Alkaline Phosphatase 103 U/L Troponin I < 0.015 ng/ml C-Reactive Protein 8.72 mg/dl Total Protein 6.1 gm/dl Albumin 3.2 gm/dl Bedside Lactic Acid Venous 0.83 mmol/L Urine Color DK YELLOW Urine Appearance CLEAR Urine pH 6.5 Urine Specific [place] 1.016 Urine Protein NEG Urine Glucose (UA) NEG Urine Ketones NEG Urine Occult Blood TRACE Urine Nitrite NEG Urine Bilirubin NEG Urine Urobilinogen POS Urine Leukocyte Esterase NEG Urine WBC (Auto) 1-5 /hpf Urine RBC (Auto) 0-4 /hpf Urine Hyaline Casts (Auto) 0 /lpf Urine Epithelial Cells (Auto) 5-10 /lpf Urine Bacteria (Auto) NEG Assessment & Plan 61-year-old male resident to the ER with complaints of altered mental status. The patient is accompanied by his stated that after she came home from work and noticed that the patient was disoriented. Altered mental status: Likely secondary to Ambien versus TIA - Head CT: There is no hemorrhage, mass effect, or evidence of acute territorial ischemia by CT criteria. - MRI brain :1. No acute intracranial abnormality. No evidence of acute ischemia or abnormal enhancement. 2. Findings suggest mild chronic microvascular ischemic changes. 3. Mild ethmoid and left maxillary sinus disease. The disorientation that the patient has experienced was likely secondary to using Ambien rather than TIA. CT and MRI head were unremarkable for an acute event . He was alert and oriented on arrival and He was monitored in the ER with no changes in mental status. He was recommended to follow-up with his PCP and advised to return to the ER if his symptoms returned Attending Addendum: I physically seen and examined this patient, have supervised the medical residents activities, and agree with the H&P as noted above with the following exceptions: NONE The patient is a 61-year-old male who presents emergency department with altered mental status that began prior to arrival. The , who is with the patient, help supply history. She reports that the patient came home from work , reportedly had chills, was disoriented, took an unknown amount of Ambien around 1:00 in the afternoon and went to sleep. reports that he would have difficulty walking and keeping his balance, had difficulty using TV remote , reportedly had an accident when he went to the restroom. Patient reports to that he frequently takes Ambien to deal with his chronic tinnitus, but usually does not do so at 1:00 in the afternoon like it did today. The patient had been to the emergency department the previous day due to constipation and dehydration and was told he had a virus. The patient is awake, well-developed and adequately nourished, alert and oriented 3, normocephalic and atraumatic, lying in bed and in no acute distress. HEENT--PERRL, EOMI, mucous membranes and oropharynx dry. Neck--supple, no JVD or bruits, thyroid normal, trachea midline, no adenopathy. Heart--normal S1 and S2, no extra beats, no murmurs, rubs or gallops. Lungs--clear bilaterally with good air movement, no respiratory distress, no accessory muscle use. Abdomen--normal bowel sounds and soft, nontender and nondistended, no hernias or masses, no organomegaly. Extremities--no cyanosis, clubbing or edema. There are good distal pulses b/l. Dermatologic--normal skin turgor, normal color, warm and dry, no abnormal lymph nodes, no rash. Neurologic--cranial nerves II through XII grossly intact, motor and sensory examination normal. Rheumatologic--normal range of motion, nontender, muscles and joints. Psychiatric--normal affect. Assessment and Plan: 1. Resolved episode of disorientation--patient underwent a CT of the head, and then underwent an MRI the brain. Both of which did not show any acute issues. The patient was able to ambulate without difficulty in the emergency department , was completely coherent for several hours, had a completely normal heart monitor for several hours, and was thought to be safe to discharge to home to follow-up with his physician the next day. He was advised to no longer take Ambien. Additional Copies To Sonia Ontiveros D.O. Resident Tracking Resident Involvement: Resident Care Provided Care Provided: [facility]
--- NOTE | 2017-03-03 07:02 | DIAGNOSTIC IMAGING REPORT ---
CT SCAN OF THE BRAIN WITHOUT IV CONTRAST CLINICAL HISTORY: Change in mental status. COMPARISON STUDY: No priors. TECHNIQUE: Unenhanced axial CT scan of the brain is performed from the vertex to the skull base. CT DOSE: 614.27 mGy.cm FINDINGS: Brain parenchyma: There is minimal subcortical and periventricular microangiopathic change. There is no hemorrhage, mass effect, or evidence of acute territorial ischemia by CT criteria. Murray-white matter is preserved. No extra-axial fluid collection is seen. Ventricles, sulci, cisterns: Prominent secondary to involutional change. Intracranial vasculature: There is atherosclerotic calcification of the cavernous carotid arteries. Calvarium: Unremarkable. Sinuses and mastoids: Trace mucosal thickening is seen in the left maxillary antrum. The remaining visualized paranasal sinuses are clear. The mastoid air cells are well pneumatized. Orbits: The bony orbits are grossly intact. IMPRESSION: There is no hemorrhage, mass effect, or evidence of acute territorial ischemia by CT criteria. Electronically signed by: Brian Cancino M.D. 03/03/2017 7:01 AM Dictated Date/Time: 03/03/2017 6:59 AM
--- NOTE | 2017-03-03 07:22 | DIAGNOSTIC IMAGING REPORT ---
BRAIN COMBO HISTORY:61 yearsMaleconfusion . Patient also complains of tinnitus since January 2016. COMPARISON: CT head 03/02/2017 TECHNIQUE: Multiplanar multisequence MRI of brain was obtained both with and without the use of 11 mL Gadavist. FINDINGS: There is no restricted diffusion to suggest acute ischemia. Midline structures including the corpus callosum, brainstem, optic chiasm, pituitary gland and pineal gland appear unremarkable the sagittal T1 series. There is no cerebellar tonsillar herniation. No pathologic blooming artifact identified. There is no acute intracranial hemorrhage, midline shift, abnormal extra-axial collections, hydrocephalus or intracranial mass. There is mild cerebral atrophy. Scattered areas of T2 prolongation within the periventricular and subcortical white matter of the cerebral images bilaterally, notably within the frontoparietal lobes are noted. There is no abnormal enhancement. The coronal postcontrast T1 series is mildly motion degraded. The flow voids at the level of the skull base appear patent. There is mild ethmoid sinus disease. Minimal left maxillary sinus disease also noted. The mastoid air cells and middle ear cavities appear generally clear. The orbits are symmetric. IMPRESSION: 1. No acute intracranial abnormality. No evidence of acute ischemia or abnormal enhancement. 2. Findings suggest mild chronic microvascular ischemic changes. 3. Mild ethmoid and left maxillary sinus disease. The above report was generated using voice recognition software. It may contain grammatical, syntax or spelling errors. Electronically signed by: Андрей Self M.D. 03/03/2017 7:21 AM Dictated Date/Time: 03/03/2017 7:15 AM
== END 2017-03-03 05:33 | disposition home or self-care (01) ==
LOC: C.EDB 20:58
DX: G04.30 Acute necrotizing hemorrhagic encephalopathy, unspecified (principal); J45.909 Unspecified asthma, uncomplicated; Z98.52 Vasectomy status; Z79.82 Long term (current) use of aspirin; Z79.899 Other long term (current) drug therapy

== ENCOUNTER → 2017-03-23 | Outpatient (CLI) | payer BC ==
[~2017-03-23] MED LIST changes: +ASPI81CH2 PO; +ESCI10TA17 PO; -LORA-741 PO
[2017-03-23 09:52] LABS: ESTIMATED AVERAGE GLUCOSE 111 mg/dl; HA1C FLAG Normal (Normal)
[2017-03-23 09:54] LABS: ALT/SGPT 31 U/L (12-78); BLOOD UREA NITROGEN 16 mg/dl (7-18); BUN/CREATININE RATIO 17.2 (10-20); CALCIUM 8.6 mg/dl (8.5-10.1); CARBON DIOXIDE 29 mmol/L (21-32); CHLORIDE 104 mmol/L (98-107); CHOLESTEROL 152 mg/dl (0-200); GLUCOSE 96 mg/dl (70-99); POTASSIUM 3.8 mmol/L (3.5-5.1); SODIUM 138 mmol/L (136-145); TRIGLYCERIDES 108 mg/dl (0-150); VERY LOW DENSITY LIPOPROT CALC 22 mg/dl
[2017-03-23 09:57] LABS: ALB/GLOB RATIO 1.2 (0.9-2); ALKALINE PHOSPHATASE 91 U/L (45-117); AST/SGOT 19 U/L (15-37); CHOLESTEROL/HDL RATIO 3.1; HDL CHOLESTEROL 49 mg/dl; LDL CHOLESTEROL CALCULATED 81 mg/dl
== END | disposition home or self-care (01) ==
LOC: C.LAB 06:52
PROVIDERS: ATTEND Family Medicine
DX: R73.9 Hyperglycemia, unspecified (principal)

== ENCOUNTER 2017-08-17 10:10 | Emergency (ER) | payer BC ==
[~2017-08-17] VITALS: Ht 177.8 cm; Wt 117.0 kg
[2017-08-17 10:31] VITALS: TEMP 36.5; Ht 177.8 cm; Wt 117.0 kg
--- NOTE | 2017-08-17 11:44 | DIAGNOSTIC IMAGING REPORT ---
L-SPINE MIN 4 VIEWS ROUTINE HISTORY: Pain right sided lumbar back pain COMPARISON: None. FINDINGS: There is no fracture. No subluxation. Moderate degenerative disc changes throughout. Moderate degenerative osteophytic change throughout the anterolateral aspect of the vertebral bodies. No compression deformity. No acute subluxation. IMPRESSION: Moderate degenerative disc change throughout the entire lumbar region. Moderate degenerative osteophytic changes throughout. No acute process. The above report was generated using voice recognition software. It may contain grammatical, syntax or spelling errors. Electronically signed by: Lito Emanuel M.D. 08/17/2017 11:43 AM Dictated Date/Time: 08/17/2017 11:42 AM
[2017-08-17] MEDS ORDERED: SIMV40TA2 PO (11:45)
[2017-08-17] MEDS ORDERED: NIAC1TAB56 PO (11:45)
[2017-08-17] MEDS ORDERED: ZOLP1TAB PO (11:45)
[2017-08-17] MEDS ORDERED: ESCI10TA17 PO (11:45)
[2017-08-17] MEDS ORDERED: CYCL10TA6 PO (12:26)
[2017-08-17] MEDS ORDERED: TRAM-10 PO (12:26)
[2017-08-17 12:43] VITALS: BP 138/88; PULSE 60; O2SAT 94
--- NOTE | 2017-08-17 19:36 | EMERGENCY ROOM VISIT NOTE ---
ED Visit Note First contact with patient: 10:57 Chief Complaint: Back pain. History of Present Illness: Mr. Rowe is a 61-year-old white male who ambulates into the ED complaining of right sided lumbar back pain. Historically patient reports he's had a previous "pinched nerve many years ago" that did not require surgical intervention. Patient reports yesterday he started experiencing mild lumbar back pain over the right paraspinous muscles associated with the L3 through L5 area. Over the last day the pain has gradually increased in intensity. He describes his pain as a sharp sensation. He reports there is minimal radiation of his pain towards the lumbar back and across into the left paraspinous musculature. He reports he is not having any pain at rest but when he does any movements of the lumbar spine he rates his discomfort 9/10. He reports he has been taking ibuprofen which makes his pain more bearable. In addition to flexing at the waist he does report rolling in bed increases his discomfort. Associated with his pain he reports that yesterday at up approximately the time the pain started he felt like he was stepping on something with the ball of his foot and thought his sock was rolled up. He reports when he checked at the sock was not rolled up but he continues to experience the sensation. He denies any fevers, chills, sweats, skin eruptions, skin color changes, abdominal pain, nausea, vomiting, diarrhea, constipation, rectal bleeding, black /tarry stools, urinary symptoms, hematuria, genital paresthesias, bowel and bladder dysfunction, lower extremity weakness/numbness/tingling, difficulty walking, difficulty ambulating. Review of Systems: As noted above in history of present illness. All body systems were reviewed and found to be negative as noted above. Past Medical History: As previously noted, unspecified skin disease, bronchitis , status post knee surgery Current Medications: Aspirin, Ambien, Zocor, niacin, Lexapro. Allergies to Medications: Patient denies. Social History: Patient is currently employed; he feels safe in his home environment; he denies tobacco use and admits to alcohol use. Physical Examination: Vital Signs: Date Time Temp Pulse Resp B/P (MAP) Pulse Ox O2 Delivery O2 Flow Rate FiO2 08/17/17 12:43 60 18 138/88 94 08/17/17 10:31 36.5 62 18 155/84 97 Room Air GENERAL: 61-year-old male in mild to moderate distress due to pain, nontoxic- appearing, afebrile and hemodynamically stable. NEUROLOGICAL: Awake, alert and oriented to person, place and time. Answering questions appropriately and following commands. Normal gait. Good hand eye coordination. SKIN: Warm, dry and pink. No soft tissue eruptions or trauma noted. HEENT: Atraumatic and normocephalic. BACK: No tenderness over the bony cervical, thoracic and lumbar spine. Mild tenderness in the right lumbar paraspinous musculature approximately 10-12 cm from the spine. There is minimal muscle spasm in this area. Decreased range of motion in all movements due to pain. Negative straight leg raise test. No CVA tenderness. THORAX: Lungs sounds are clear to auscultation and equal bilaterally with symmetrical chest wall. ABDOMEN: Obese, soft and nontender. Positive bowel sounds in all quadrants. No guarding, rigidity or organomegaly. LOWER EXTREMITIES: Moves all extremities well on command and with purpose. All distal neurovascular statuses are intact and equal bilaterally. No calf tenderness or cords. 4/5 muscle strength in all movements of the hips, knees and ankles. 2+ patellar and Achilles deep tendon reflexes intact and equal bilaterally. Able to distinguish light sensations through all dermatomes. ED Course: Patient is assessed as noted above. Patient's medication list was reviewed. Patient was offered pain medication and refused. Lumbar spine x-rays: Were reviewed by myself and read by the radiologist showing moderate degenerative disc changes throughout the entire lumbar spine. Moderate degenerative osteophytic changes throughout. No acute changes or compression deformities/subluxations. Patient was educated about today's findings and instructed on his treatment plan ; he verbalized understanding and agreement with this plan. Clinical Impression: Left-sided lumbar back pain. Decision-Making: Initially my differential diagnosis I considered muscle spasm, muscle strain, sciatica, herniated disc, discitis, vertebral fracture and other causes. Patient's blood pressure: Elevated. Blood pressure disposition: Situational. Disposition: Patient discharged home in stable condition; prior to departure he was reassessed and subjectively reported his pain was 3/10. Plan: Patient was prescribed Ultram 50 mg every 6 hours as needed for pain and encouraged to alternate the Ultram with 650 mg of acetaminophen every 3 hours. Patient was prescribed Flexeril 10 mg every 8 hours as needed for muscle spasm. I lengthy conversation with the patient on the use of ice, heat and proper lifting and moving techniques. Patient is encouraged to follow-up with family physician for follow-up care and treatment. Patient is encouraged return ED for worsening pain, fevers, abdominal pain, numbness and tingling in the rectal or genital areas, bowel or bladder incontinence, lower extremity weakness/numbness/tingling or any new/concerning symptoms.
== END 2017-08-17 12:47 | disposition home or self-care (01) ==
LOC: C.EDB 10:14 → C.EDC 12:47
DX: M54.5 Low back pain (principal); Z86.19 Personal history of other infectious and parasitic diseases; Z98.890 Other specified postprocedural states; Z79.82 Long term (current) use of aspirin; Z79.899 Other long term (current) drug therapy

== ENCOUNTER → 2017-10-01 | Outpatient (CLI) | payer BC ==
[~2017-10-01] MED LIST changes: +NIAC1TAB56 PO; -NIAC500T11 PO; -SIMV20TA2 PO; +SIMV40TA2 PO; +TRAM-10 PO; +ZOLP1TAB PO; -ZOLP5TAB PO
[2017-10-01 09:51] LABS: HEMOGLOBIN A1C 5.7 % (4.5-5.6)
[2017-10-01 09:56] LABS: ALBUMIN 3.7 gm/dl (3.4-5.0); ALT/SGPT 23 U/L (12-78); AST/SGOT 17 U/L (15-37); BLOOD UREA NITROGEN 14 mg/dl (7-18); CALCIUM 8.7 mg/dl (8.5-10.1); CARBON DIOXIDE 29 mmol/L (21-32); CREATININE 0.88 mg/dl (0.60-1.40); GLUCOSE 102 mg/dl (70-99); POTASSIUM 3.9 mmol/L (3.5-5.1); SODIUM 136 mmol/L (136-145)
[2017-10-01 09:59] LABS: ALKALINE PHOSPHATASE 107 U/L (45-117); CHOLESTEROL 164 mg/dl (0-200); LDL CHOLESTEROL CALCULATED 80 mg/dl; TOTAL PROTEIN 7.1 gm/dl (6.4-8.2)
== END | disposition home or self-care (01) ==
LOC: C.LAB 06:43
PROVIDERS: ATTEND Urology
DX: E78.00 Pure hypercholesterolemia, unspecified (principal); R73.9 Hyperglycemia, unspecified

== ENCOUNTER → 2018-04-18 | Outpatient (CLI) | payer BC ==
[~2018-04-18] MED LIST changes: -TRAM-10 PO
[2018-04-18 09:48] LABS: HEMOGLOBIN A1C 6.3 % (4.5-5.6)
[2018-04-18 10:08] LABS: ALBUMIN 3.4 gm/dl (3.4-5.0); ALKALINE PHOSPHATASE 108 U/L (45-117); ALT/SGPT 26 U/L (12-78); AST/SGOT 20 U/L (15-37); BLOOD UREA NITROGEN 14 mg/dl (7-18); CALCIUM 8.7 mg/dl (8.5-10.1); CARBON DIOXIDE 26 mmol/L (21-32); CHOLESTEROL 142 mg/dl (0-200); CREATININE 0.82 mg/dl (0.60-1.40); GLUCOSE 109 mg/dl (70-99); LDL CHOLESTEROL CALCULATED 70 mg/dl; POTASSIUM 3.7 mmol/L (3.5-5.1); SODIUM 138 mmol/L (136-145); TOTAL PROTEIN 6.7 gm/dl (6.4-8.2)
== END | disposition home or self-care (01) ==
LOC: C.LAB 06:56
PROVIDERS: ATTEND Family Medicine
DX: E78.00 Pure hypercholesterolemia, unspecified (principal); R73.9 Hyperglycemia, unspecified

== ENCOUNTER 2020-08-20 09:43 | Observation (INO) ==
--- NOTE | 2020-08-01 12:29 | PAT Medication Instructions ---
Medication Instructions Date of Service August 01, 2020 Home Medications sildenafil 100 mg tablet 50 mg PO .Take 1/2 tablet 1 ho aspirin 81 mg tablet,delayed release 81 mg PO PM clindamycin phosphate 1 % topical gel 1 applic TOPICAL DAILY PRN clobetasol 0.05 % topical cream 1 applic TOPICAL DAILY PRN crisaborole 2 % topical ointment 1 applic TOPICAL BID metronidazole 0.75 % topical cream 1 applic TOPICAL DAILY PRN niacin 500 mg tablet 1,000 mg PO PM omeprazole 20 mg capsule,delayed release 20 mg PO PM simvastatin 40 mg tablet 40 mg PO PM zolpidem 12.5 mg tablet,extended release,multiphase 12.5 mg PO HS PRN ASK your prescriber and surgeon aspirin 81 mg tablet,delayed release 81 mg PO PM STOP taking 48 hours before surgery niacin 500 mg tablet 1,000 mg PO PM STOP taking 24 hours before surgery clindamycin phosphate 1 % topical gel 1 applic TOPICAL DAILY PRN clobetasol 0.05 % topical cream 1 applic TOPICAL DAILY PRN crisaborole 2 % topical ointment 1 applic TOPICAL BID metronidazole 0.75 % topical cream 1 applic TOPICAL DAILY PRN DO NOT take the morning of surgery sildenafil 100 mg tablet 50 mg PO .Take 1/2 tablet (if needed) Take evening before surgery omeprazole 20 mg capsule,delayed release 20 mg PO PM simvastatin 40 mg tablet 40 mg PO PM zolpidem 12.5 mg tablet,extended release,multiphase 12.5 mg PO HS PRN (if needed) sildenafil 100 mg tablet 50 mg PO .Take 1/2 tablet (if needed) Other Notes If you have any questions please call us at [phone] or [phone] or [phone] or [phone]
--- NOTE | 2020-08-02 11:35 | Anesthesiology Consultation ---
Date of Service August 02, 2020 Assessment & Plan (1) Encounter for pre-operative examination: - Per assessment on 08/02: Travel screen- lives in [facility]. Travel to [facility] for doctor appt. Uses PPE. No known COVID-19 positive contacts or current COVID-19 related symptoms. No out of state or large gatherings planned for [place]. Surgeon arranging preop COVID testing (scheduled 08/13). Awaiting results. - ASA instructions per surgeon/prescriber Chart Review Chart Review: Acceptable Risk for Surgery and Patient seen in Pre Admission Testing Teaching & Discussion Pre-Anesthesia Teaching/Discussion Notes: Instructed NPO after midnight before surgery,except medications with 15 cc of water. Medication instructions provided according to the PAT guidelines. History Surgery Operation Date: 08/20/20 10:50 Proposed Procedures p Robotic Laparoscopic Assisted Retropubic Prostatectomy, Possible Open, Possible Pelvic Lymph Node dissection, Possible Suprapubic Tube Placement - Juan Ramon Teran MD Height/Weight Height: 5 ft 11 in Weight: 122.8 kg Allergies Allergy/AdvReac Type Severity Reaction Status Date / Time No Known Allergies Allergy Verified 08/01/20 10:03 Medications Home Medications Medication Instructions Recorded Confirmed Last Taken sildenafil 100 mg tablet 50 mg PO .Take 1/2 tablet 1 ho PRN 05/15/20 08/01/20 Unknown aspirin 81 mg tablet,delayed 81 mg PO PM 07/24/20 08/01/20 Unknown release clindamycin phosphate 1 % topical 1 applic TOPICAL DAILY PRN 07/24/20 08/01/20 Unknown gel clobetasol 0.05 % topical cream 1 applic TOPICAL DAILY PRN 07/24/20 08/01/20 Unknown crisaborole 2 % topical ointment 1 applic TOPICAL BID 07/24/20 08/01/20 Unknown metronidazole 0.75 % topical cream 1 applic TOPICAL DAILY PRN 07/24/20 08/01/20 Unknown niacin 500 mg tablet 1,000 mg PO PM tab 07/24/20 08/01/20 Unknown omeprazole 20 mg capsule,delayed 20 mg PO PM 07/24/20 08/01/20 Unknown release simvastatin 40 mg tablet 40 mg PO PM 07/24/20 08/01/20 Unknown zolpidem 12.5 mg tablet,extended 12.5 mg PO HS PRN tab 07/24/20 08/01/20 Unkn own release,multiphase Past Medical History Medical History Acid reflux controlled Benign prostatic hyperplasia with urinary obstruction Bilateral tinnitus Chronic eczema Hearing loss, sensorineural, high frequency Hypercholesterolemia Impotence, organic Obesity Prostate cancer Rosacea Exercise / Class Metabolic Activity II 4-5 Yardwork/Stairs/Walk up hill Past Family History Family History Father , 67yo CHF (congestive heart failure) Mother , 82yo Ruptured aortic aneurysm Alzheimer disease Dyslipidemia Hypertension Brother A-fib Sister Myocardial infarction Sister No problems noted. Sister No problems noted. Son No problems noted. 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 Physical Exam Vital Signs VITALS BP 148/98 (patient anxious regarding upcoming surgery/prostate cancer diagnosis, BP 145/82 at 07/24 urology office visit, patient will continue to have PCP monitor BP's) P 60 TEMP 97.8 SP02 97%RA RESP 16 PHYSICAL Full neck and c-spine range of motion. Full TMJ range of motion. TMD 3 finger breaths Mallampati Score 3 (small oral opening) Dentition: upper partial Lungs: clear throughout to auscultation Cardiac: regular rate and rhythm, no murmurs noted Spine: normal Carotid arteries: negative bruit Extremities: no edema Testing Laboratory Results 08/02/20 11:49 Urine Color Yellow 08/02/20 11:49 Urine Appearance Clear (Clear) 08/02/20 11:49 Urine pH 6.5 (4.5-7.5) 08/02/20 11:49 Ur Specific [place] 1.009 (1.000-1.030) 08/02/20 11:49 Urine Protein Negative (Negative) 08/02/20 11:49 Urine Glucose (UA) Negative (Negative) 08/02/20 11:49 Urine Ketones Negative (Negative) 08/02/20 11:49 Urine Nitrite Negative (Negative) 08/02/20 11:49 Ur Leukocyte Esterase Negative (Negative) 08/02/20 11:49 Blood Type O Positive 08/02/20 11:49 Antibody Screen NEGATIVE 08/02/20 11:49 07/26/20 SODIUM 137 POTASSIUM 4.0 CHLORIDE 103 CO2 27 BUN 13 CREATININE 0.96 GLUCOSE 111 05/08/20 HA1c 6.4% Electrocardiogram Date: 08/02/20 SB at 52bpm. unconfirmed report. Chest X-Ray Date: 08/02/20 FINDINGS: The cardiac and mediastinal contours are normal. There is no evidence of focal pulmonary consolidation. There is no evidence of failure. No pleural effusions are visualized.[There is a small zone of subsegmental atelectasis/scarring within the retrosternal region. IMPRESSION: No active disease in the chest.
[2020-08-02 12:09] LABS: Basophils # (auto) 0.03 K/uL (0-0.2); Basophils % (auto) 0.4 %; Eosinophils # (auto) 0.14 K/uL (0-0.5); Eosinophils % (auto) 1.9 %; Hematocrit (blood only) 42.9 % (42-52); Hemoglobin 13.9 g/dL (14.0-18.0); Immature Granulocytes # (auto) 0.01 K/uL (0.00-0.02); Immature Granulocytes % (auto) 0.1 %; Lymphocytes # (auto) 2.66 K/uL (1.2-3.4); Lymphocytes % (auto) 35.7 %; Mean Corpuscular Hemoglobin 25.9 pg (25-34); Mean Corpuscular Hgb Conc 32.4 g/dL (32-36); Mean Corpuscular Volume 79.9 fL (80-100); Monocytes # (auto) 0.61 K/uL (0.11-0.59); Monocytes % (auto) 8.2 %; Neutrophils % (auto) 53.7 %; Platelet Count 257 K/uL (130-400); RDW Coefficient of Variation 15.6 % (11.5-14.5); RDW Standard Deviation 45.6 fL (36.4-46.3); Red Blood Count 5.37 M/uL (4.7-6.1); White Blood Count 7.45 K/uL (4.8-10.8)
[2020-08-02 12:14] LABS: Appearance Urine Clear (Clear); Bilirubin Urine Negative (Negative); Blood Urine Negative (Negative); Color Urine Yellow; Glucose Urine UA Negative (Negative); Ketones Urine Negative (Negative); Leukocyte Esterase Urine Negative (Negative); Nitrite Urine Negative (Negative); Protein Urine Negative (Negative); Specific Gravity Urine 1.009 (1.000-1.030); Urobilinogen Urine Negative (Negative); pH Urine 6.5 (4.5-7.5)
--- NOTE | 2020-08-02 12:34 | XRay Report ---
XR chest Pre-admission PA/Lat CLINICAL HISTORY: Preoperative chest COMPARISON STUDY: 03/02/2017 FINDINGS: The cardiac and mediastinal contours are normal. There is no evidence of focal pulmonary co nsolidation. There is no evidence of failure. No pleural effusions are visualized.[There is a small z one of subsegmental atelectasis/scarring within the retrosternal region. IMPRESSION: No active disease in the chest. ACT 112: Negative or not required by law. Electronically signed by: Darrell Asencio M.D. 08/02/2020 12:32 PM
--- NOTE | 2020-08-02 15:08 | Electrocardiogram Report ---
Test Reason : Blood Pressure : / mmHG Vent. Rate : 052 BPM Atrial Rate : 052 BPM P-R Int : 180 ms QRS Dur : 098 ms QT Int : 454 ms P-R-T Axes : 053 069 053 degrees QTc Int : 422 ms Sinus bradycardia Otherwise normal ECG When compared with ECG of 02-MAR-2017 22:02, Vent. rate has decreased BY 27 BPM Confirmed by Omar Villanueva ([id number]) on 08/02/2020 3:08:01 PM Referred By: Juan Ramon Teran Confirmed By:Omar Villanueva
[~2020-08-20 09:43] MED LIST changes: -ASPI81CH2 PO; -ESCI10TA17 PO; +HEPARIN SOD 5,000 UNIT/0.5 ML VIAL SC SCH; +LACTATED RINGER'S 1,000 ML IV SCH; +LIDOCAINE HCL 2% 2 ML VIAL/AMP(20MG/ML) INFIL ONE; +LR 15ML/HR IV SCH; +MIDAZOLAM HCL 1 MG/ML 2ML VIAL ONE; -NIAC1TAB56 PO; +ONDANSETRON INJ 2 MG/ML 2 ML VIAL ONE; +PROPOFOL IV EMULSION 10 MG/ML 20 ML VIAL IV ONE; +ROCURONIUM BROMIDE 10 MG/ML 5 ML VIAL IV ONE; -SIMV40TA2 PO; -ZOLP1TAB PO; +fentaNYL citrate 100 MCG/2 ML VIAL ONE
--- NOTE | 2020-08-20 11:05 | History & Physical Bridge Note ---
Date of Service August 20, 2020 History & Physical Bridge Note I have examined the patient, reviewed the History & Physical and in the interval since the performance of the History & Physical I have noted the following changes of clinical significance: no changes noted
[2020-08-20] MEDS ORDERED: ATROPINE SULFATE 0.1 MG/ML 10ML SYR IV PRN (11:31)
[2020-08-20] MEDS ORDERED: HYDROmorphone INJ 0.5 MG/0.5 ML SYR IV PRN (11:31)
[2020-08-20] MEDS ORDERED: ONDANSETRON INJ 2 MG/ML 2 ML VIAL IV PRN (11:31)
[2020-08-20] MEDS ORDERED: KETOROLAC 30 MG/ML VIAL IV PRN (11:31)
[2020-08-20] MEDS ORDERED: LABETALOL HCL IV 5 MG/ML 20ML IV PRN (11:31)
[2020-08-20] MEDS ORDERED: BUPIVACAINE 0.5 % 5 MG/1 ML MPF 30ML VIAL ONE (11:32)
[2020-08-20] MEDS ORDERED: BELLADONNA/OPIUM SUPP 60 MG SUPP PR ONE (12:24)
[2020-08-20] MEDS ORDERED: ROCURONIUM BROMIDE 10 MG/ML 5 ML VIAL IV ONE ×7 (14:26→15:13)
[2020-08-20] MEDS ORDERED: SURGICEL ABSORB HEMOSTAT 2IN X 14IN TOP ONE (14:34)
[2020-08-20] MEDS ORDERED: GLYCOPYRROLATE 0.2 MG/ML VIAL ONE (15:13)
[2020-08-20] MEDS ORDERED: NEOSTIGMINE METHYLSULFATE 5 MG/5 ML SYR ONE (15:13)
[2020-08-20] MEDS ORDERED: FLOSEAL HEMOSTATIC MATRIX 10ML TOP ONE (15:14)
--- NOTE | 2020-08-20 15:46 | Operative Report ---
PG Post Operative Report Pre & Post Diagnosis Operation Date: 08/20/20 11:10 Pre-Op Diagnosis: Prostate Cancer Post-Op Diagnosis: Prostate Cancer I identified the patient and participated in the time-out.: Yes Procedure Operation Date: 08/20/20 11:10 Actual Procedures p Robotic Laparoscopic Assisted Retropubic Prostatectomy, Pelvic Lymph Node dissection(Not Applicable) - Juan Ramon Teran MD Surgeon Jeff Teran MD Credit Collections Analyst Melita Younger; Namrata Jaime Estimated Blood Loss 150 Findings Consistent with Post-Op Diagnosis Specimens 1. Periprostatic fat 2. Right pelvic lymph nodes 3. Left pelvic lymph nodes 4. Prostate and seminal vesicles Description of Procedure The patient was identified in the preoperative holding area, appropriate informed consents were reviewed and completed, and he was transported to the operating suite. Subcutaneous heparin was administered in the pre-operative holding area. Upon arrival in the operating suite, he received appropriate antibiotics and general anesthesia. He was positioned in dorsal lithotomy, a B&O suppository was inserted after digital rectal exam, and he was prepped and draped in standard fashion. A Garcia catheter was inserted in the sterile field. A Veress needle was passed per umbilicus with uniform insufflation of the abdomen to 15mmHg. He was placed in steep Trendelenburg position. A periumbilical incision was then made to accommodate a 12mm Visiport with 10mm 0degree laparoscope. Inspection of the abdomen was carried out, and there was no evidence of traumatic entry or injury secondary to the Veress needle. After confirming a clear anterior abdominal wall, ports were subsequently placed in standard robotic prostatectomy fashion without incident. To begin the robotic portion of the case, the left lateral aspect of the sigmoid was mobilized off of the left pelvic side wall to allow the pouch of [place] to be appropriately visualized. The medial umbilical ligaments were then controlled with bipolar electrocautery just inferior to the umbilicus. Following cauterization, they were divided utilizing monopolar cautery. A peritoneal incision was carried from this location to the medial aspect of the internal inguinal rings bilaterally with care to avoid opening through the ring. This incision was concluded when the vas deferens was reached. Dissection of the bladder and prostate off of the posterior aspect of the pubic arch was completed allowing full visualization of the prostate. The fat overlying the prostate was removed en bloc and passed off the table as a specimen labeled "periprostatic fat". The endopelvic fascia was cleared during this portion of the procedure, and subsequently opened - first on the right and then the left. The incision through the endopelvic fascia began near the prostate-bladder junction and was carried to the apex with extreme care to preserve all lateral levator musculature as well as the periurethral musculature and sphincter complex. I additionally preserved the puboprostatic ligaments. I then controlled the DVC with a 3-0 V-lock suture in overlapping/figure of 8 fashion. The lymph node dissection was then conducted. External iliac vessels were identified on the pelvic side wall. The packet of fat and lymphatic tissue that resides just under the iliac vein was elevated and off of the vein with a split and roll technique. The packet was dissected laterally to the circumflex vein and distally to the obturator nerve which was preserved. The p roximal aspect of the packet was carried towards the bifurcation of the iliac vessels. A combination of monopolar and bipolar cautery were used to assist with control. After completing the dissection on both sides, the packets were collected and passed off of the table as specimens labeled "pelvic lymph nodes". My attention then returned to the prostate, with identification of the bladder neck aided by gentle traction on the Garcia catheter and lateral to medial pressure at the presumed level of the bladder neck with the robotic instruments. An anterior cystotomy was made, the Garcia balloon deflated and the catheter guided through the incision to allow anterior retraction. I attempted to preserve maximal bladder neck musculature as I circumferentially dissected around the bladder neck. After incision through the posterior aspect of the mucosa, the dissection was carried through detrusor muscle until the bilateral ampullae of the vasa were identified. These were dissected entirely as were the bilateral seminal vesicles. The vasa were transected and the SV's and transected vasa were brought through the incision. This allowed me to elevate the posterior portion of the prostate and create a posterior plane by splitting the Denonvillier's fascia. An incision in the lateral prostatic fascia was then made bilaterally to facilitate control of the vascular pedicles and preservation of the nerve bundles. Vasculature running along the posterior/lateral aspect of the prostate was preserved as well as the tissue containing the nerves. The pedicles were then controlled with a series of Weck clips. The apical attachments of the prostate were remaining at that stage. The DVC was divided after control with bipolar cautery over the prostate. Continuous inspection from anterior and lateral views allowed me to closely follow the apical contour of the prostate and maximally preserve urethral length and tissue. The prostate was entirely freed at that point, and collected in an EndoCatch bag before being moved out of the field of vision. Hemostasis was confirmed and anastomosis of the bladder and urethra was completed utilizing a double armed V- Lock stitch. Of note, his urethra was somewhat friable and required meticulous attention to avoid carrying the urethra when reapproximating the bladder and urethra. Fortunately, I was able to successfully reapproximate with excellent preservation of urethral length. A new Garcia catheter was inserted and the anastomosis tested with irrigation. A BEA drain was guided through the left lateral robotic port and into the pelvis. This was sutured in place with a 3-0 nylon. The robot was undocked, the specimen extracted through expansion of the nichole- umbilical camera port. The fascia was closed with a series of 0-PDS figure of 8 stitches. The right optometry assistant port was closed in two layers - with a figure of 8 0-Vicryl to reapproximate the fascia followed by 4-0 Monocryl to close the skin. Monocryl was used to close all other skin incisions. All wounds were dressed with Dermabond. The case was concluded and the patient taken to the PACU in stable condition. Melita Younger and Namrata Jaime assisted from incision to closure. I attest to the content of the Intraoperative Record and any orders documented therein. Any exceptions are noted below.
[2020-08-20 16:04] LABS: Basophils # (auto) 0.02 K/uL (0-0.2); Basophils % (auto) 0.2 %; Eosinophils # (auto) 0.04 K/uL (0-0.5); Eosinophils % (auto) 0.3 %; Hematocrit (blood only) 41.1 % (42-52); Hemoglobin 13.6 g/dL (14.0-18.0); Immature Granulocytes # (auto) 0.01 K/uL (0.00-0.02); Immature Granulocytes % (auto) 0.1 %; Lymphocytes # (auto) 1.57 K/uL (1.2-3.4); Lymphocytes % (auto) 12.7 %; Mean Corpuscular Hemoglobin 26.6 pg (25-34); Mean Corpuscular Volume 80.3 fL (80-100); Mean Platelet Volume 9.5 fL (7.4-10.4); Monocytes # (auto) 0.58 K/uL (0.11-0.59); Monocytes % (auto) 4.7 %; Neutrophils # (auto) 10.18 K/uL (1.4-6.5); Platelet Count 270 K/uL (130-400); RDW Coefficient of Variation 15.3 % (11.5-14.5); RDW Standard Deviation 45.2 fL (36.4-46.3); Red Blood Count 5.12 M/uL (4.7-6.1)
[2020-08-20 16:17] LABS: Mean Corpuscular Hgb Conc 33.1 g/dL (32-36)
[2020-08-20 16:20] LABS: BUN Creatinine Ratio 9.7 (10-20); Calcium 8.3 mg/dl (8.5-10.1); Est GFR (African American) 71.5; Est GFR (Non-African American) 61.7
--- NOTE | 2020-08-20 16:33 | Anesthesiology Progress Note ---
Date of Service August 20, 2020 Anesthesia Post Procedure Vital Signs Vital Signs: Temp Pulse Pulse Resp BP BP Pulse Ox 08/20/20 16:20 36.6 C 66 17 111/71 93 08/20/20 16:10 69 15 100/56 L 94 08/20/20 16:00 72 19 110/62 97 08/20/20 15:50 36.4 C L 80 23 119/76 98 08/20/20 15:43 36.4 C L 86 16 125/84 96 08/20/20 10:17 36.7 C 79 20 147/92 H 98 Pain Intensity Abdomen: Pain Intensity: 2 Transfer of Care Handoff Completed per policy Notes Mental Status: alert / awake / arousable Patient Amnestic to Procedure: Yes Nausea / Vomiting: adequately controlled Pain: adequately controlled Airway Patency, RR, SpO2: stable & adequate BP & HR: stable & adequate Hydration State: stable & adequate Anesthetic Complications: no major complications apparent
[2020-08-20] MEDS: LACTATED RINGER'S 1,000 ML IV SCH ×2 (17:00→23:06)
[2020-08-20] MEDS ORDERED: oxyCODONE HCL IR 5 MG TAB (IMMEDIATE RELEASE) PO PRN (17:06)
[2020-08-20] MEDS ORDERED: MoRPHine SULFATE 2 MG/ML CARP IV PRN ×2 (17:06→17:14)
[2020-08-20] MEDS ORDERED: ZOLPIDEM TARTRATE 10 MG TAB PO PRN (17:13)
[2020-08-20] MEDS: oxyCODONE HCL IR 5 MG TAB (IMMEDIATE RELEASE) PO PRN ×2 (18:53→23:00)
[2020-08-20] MEDS: ACETAMINOPHEN 1,000 MG/100 ML VIAL IV SCH (18:57)
[2020-08-20] MEDS: ceFAZolin 2000MG 2,000 MG/15 ML SYR IV SCH (20:15)
[2020-08-20] MEDS: HEPARIN SOD 5,000 UNIT/0.5 ML VIAL SQ SCH (20:15)
[2020-08-20] MEDS ORDERED: PANTOprazole 40 MG TAB PO SCH (21:00)
[2020-08-20] MEDS ORDERED: ASPIRIN 81 MG ECTAB PO SCH (21:00)
[2020-08-20] MEDS ORDERED: SIMVASTATIN 40 MG TAB PO SCH (21:00)
[2020-08-20] MEDS ORDERED: NIACIN 500 MG TAB PO SCH (21:00)
[2020-08-21] MEDS: CLOBETASOL- ORDER AWAITING ACTION SCH ×3 (00:31→15:45)
[2020-08-21] MEDS: ACETAMINOPHEN 1,000 MG/100 ML VIAL IV SCH ×2 (02:18→10:44)
[2020-08-21] MEDS: ceFAZolin 2000MG 2,000 MG/15 ML SYR IV SCH (04:56)
[2020-08-21 07:36] LABS: Basophils # (auto) 0.01 K/uL (0-0.2); Basophils % (auto) 0.1 %; Eosinophils # (auto) 0.04 K/uL (0-0.5); Eosinophils % (auto) 0.4 %; Hematocrit (blood only) 39.8 % (42-52); Hemoglobin 12.8 g/dL (14.0-18.0); Immature Granulocytes # (auto) 0.03 K/uL (0.00-0.02); Immature Granulocytes % (auto) 0.3 %; Lymphocytes # (auto) 2.23 K/uL (1.2-3.4); Lymphocytes % (auto) 20.3 %; Mean Corpuscular Hgb Conc 32.2 g/dL (32-36); Mean Corpuscular Volume 80.9 fL (80-100); Monocytes # (auto) 0.86 K/uL (0.11-0.59); Monocytes % (auto) 7.8 %; Neutrophils % (auto) 71.1 %; Platelet Count 261 K/uL (130-400); RDW Coefficient of Variation 15.6 % (11.5-14.5); RDW Standard Deviation 45.7 fL (36.4-46.3); Red Blood Count 4.92 M/uL (4.7-6.1); White Blood Count 10.97 K/uL (4.8-10.8)
[2020-08-21 08:02] LABS: BUN Creatinine Ratio 10.3 (10-20); Calcium 8.6 mg/dl (8.5-10.1); Est GFR (African American) 71.5; Est GFR (Non-African American) 61.7; Potassium 3.8 mmol/L (3.5-5.1)
--- NOTE | 2020-08-21 08:38 | Urology Progress Note ---
Date of Service August 21, 2020 Assessment & Plan (1) Prostate cancer: Postop day #1 status post robotic prostatectomy Doing quite well overall BEA can be removed this morning Home later today with a Garcia catheter Advance diet Hep-Lock IV fluid now Admission and Anticipated Discharge Date Admission Date: August 20, 2020 Subjective Progressing appropriately after surgery yesterday Has been out of bed and ambulatory Has some discomfort around his extraction site but no other significant pain Happy with his progress thus far, requesting a diet Urine clear, scant BEA output overnight Physical Exam Physical Exam: Incisions appropriateno ecchymosis, no erythema, minimally tender Urine clear BEA with scant output, mostly bloody Results & Data ([facility]) Vital Signs (Past 12 Hours) Vital Signs Temp Pulse Pulse Resp BP Pulse Ox 08/21/20 07:02 36.4 C L 96 H 20 146/75 H 93 08/21/20 03:02 36.9 C 67 18 133/75 94 08/20/20 23:21 36.5 C 68 16 126/82 91 PG Care Time/CCT Total # of Minutes Spent Total Time Spent with Patient: Total time spent is greater than 50% in coordination of care (as documented) at patient's floor/unit and/or counseling patient: Coding Level of Care Code 23373 Subseq Hosp Care Lvl 2 Diagnoses Prostate cancer C61
[2020-08-21] MEDS: LACTATED RINGER'S 1,000 ML IV SCH (09:36)
[2020-08-21] MEDS ORDERED: KETOROLAC 30 MG/ML VIAL IV ONE (10:13)
[2020-08-21] MEDS: HEPARIN SOD 5,000 UNIT/0.5 ML VIAL SQ SCH (10:38)
[2020-08-21 15:35] VITALS: BP 124/76; PULSE 76; TEMP 98.6; O2SAT 97
--- NOTE | 2020-08-22 07:42 | Discharge Summary ---
Date of Service August 22, 2020 Principal Diagnosis Prostate cancer Discharge Data Allergies Allergy/AdvReac Type Severity Reaction Status Date / Time No Known Allergies Allergy Verified 08/20/20 10:13 Procedures Performed Operation Date: 08/20/20 11:10 Actual Procedures p Robotic Laparoscopic Assisted Retropubic Prostatectomy, Pelvic Lymph Node dissection(Not Applicable) - Juan Ramon Teran MD Hospital Course (1) Prostate cancer: Patient admitted for a robotic prostatectomy - details of the procedure as dictated previously in my operative report - in summary, he tolerated the procedure very well - he was in stable condition overnight with appropriate urine output and stable labs - he was subsequently discharged home with a erickson catheter - he was in stable condition at the time of discharge Total Time Total Time Spent Total Time Spent (In Minutes): 15 Discharge Plan Discharge Items Patient Disposition: Home - Self-Care Reason For Visit: Prostate CA Discharge Diagnosis: Prostate Cancer Activity: Per Instructions section Lifting: No more than 25 pounds Bathing Comment: No tub baths or soaks. Ok to shower 1 day after discharge. Sexual Activity: Wait until after follow-up appointment Exercise/Sports: Wait until after follow-up appointment Driving/Machine Use: Do not drive while taking prescription pain medication. Non-emergency contact: Surgeon and Urologist Call non-emergency contact if: your pain is not controlled, you have a fever, y our temperature is above 101, your wound has increased redness, your wound has increased drainage and your wound pain has increased Follow-up/Referrals: Juan Ramon Teran MD [Physician] - 09/04/20 10:45 am Sonia Ontiveros D.O. [Primary Care Provider] - Diet: Regular Addtl Attending Provider Instructions: Please take all medications as prescribed and keep all follow-ups as scheduled. Please call our office at [phone] with any questions, concerns or need to reschedule appointments for any reason. We are happy to assist you We have sent an antibiotic to your pharmacy of choice. Please begin antibiotic as prescribed the day BEFORE your scheduled voiding trial at [facility]. Please continue antibiotic every 12 hours through the day AFTER your voiding trial. Activity: We recommend having someone with you for the first few days after surgery to help care for you. For the first 2 weeks after surgery, we would like you to get up and walk around your house. However, we recommend limit physical activity that would increase your heart rate. This will allow your body to rest and heal. Take naps if you feel tired. Don't lift anything heavier than 10 pounds, mow the law or ride a bicycle until your follow-up appointment. Please avoid long car rides. Home Care: Unless directed otherwise, drink 6 to 8 glasses of water a day (enough to keep your urine light colored). This will also help keep a healthy flow of urine. We recommend using a stool softener for the first two weeks to avoid constipation. Erickson Catheter or Suprapubic Catheter care: Keep the catheter well secured with either a leg back or leg strap with large bag. Empty your bag when it's about half full. You may notice some blood in the bag. This is normal after surgery and while the catheter is in place. Use mild soap (such as Dove or Dial) and water to wash the catheter and the head of your penis daily, or more frequently if needed. Return to your normal diet, we encourage good protein intake to promote healing. You may shower as normal. Please avoid tub baths or soaking until catheter removed and incisions well healed. Wearing sweat pants while you have the catheter is recommended, they will be more comfortable. Follow-up Your follow up appointments for having your catheter removed, and follow up with your physician should already be scheduled. If you have any questions regarding this, please contact our office. Your final pathology report will be discussed at your physician follow-up appointment. Call [facility] at [phone] right away if you have any of the following: Chest pain or trouble breathing (call [phone] or go to the hospital) Fever of 101F or higher, uncontrolled vomiting Heavy bleeding, clots, or bright red blood from the catheter Catheter that falls out or stops draining Foul-smelling discharge from your catheter Redness, swelling, warmth, or increased pain at your incision site Drainage, pus, or bleeding from your incision Pending Studies at Discharge: Yes Studies:: Pathology Stand-Alone Forms: [facility], Opioid Pain Management, Smoking Cessation Medications and DC Order Prescriptions: New docusate sodium [Colace] 100 mg capsule 100 mg PO BID Qty: 60 RF: 0 ciprofloxacin HCl 500 mg tablet 500 mg PO BID 3 Days Qty: 6 RF: 0 oxycodone-acetaminophen [Percocet] 5-325 mg tablet 1 tab PO Q8H PRN (Reason: pain) Qty: 14 RF: 0 Continued simvastatin 40 mg tablet 40 mg PO PM RF: 0 aspirin [Adult Low Dose Aspirin] 81 mg tablet,delayed release (DR/EC) 81 mg PO PM RF: 0 clobetasol 0.05 % cream 1 applic topical DAILY PRN (Reason: Skin Irritation) RF: 0 clindamycin phosphate 1 % gel 1 applic topical DAILY PRN (Reason: Acne) RF: 0 metronidazole 0.75 % cream 1 applic topical DAILY PRN (Reason: Rash) RF: 0 omeprazole 20 mg capsule,delayed release(DR/EC) 20 mg PO PM RF: 0 zolpidem 12.5 mg tablet,ext release multiphase 12.5 mg PO HS PRN (Reason: Sleep) RF: 0 Eucrisa 2 % ointment 1 applic topical BID RF: 0 sildenafil 100 mg tablet 50 mg PO .Take 1/2 tablet 1 ho PRN (Reason: Sexual Activity) RF: 0 niacin 500 mg tablet 1,000 mg PO PM RF: 0 Discharge Orders: Discharge Order (Routine); Ordered 08/21/20 Ordered By: Namrata Thakkar/Other Patient Handouts: Emptying and Cleaning Your ..., Preventing Falls in the Home Admission Data Admit Date/Time: 08/20/20 15:32 Attending Provider: Juan Ramon Teran Admit Provider: Juan Ramon Teran Primary Care Provider: Sonia Ontiveros Other Interventions: Discharge Summary Assessment (RN) Last Done: 08/21/20 16:05 Coding Level of Care Code D/C Day Management <30 mins Diagnoses Prostate cancer C61
== END 2020-08-21 17:23 | disposition home or self-care (01) ==
LOC: ASU 09:43 → INTOOBSV 15:32 → 3W 15:32